=== PATIENT | male | born 2000 | race African-American/Black ===

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

== ENCOUNTER → 2021-07-27 | Outpatient (CLI) | payer MEDICAID ==
[~2021-07-27] MED LIST changes: -CLIN150C14 PO; +CLIN150C16 PO; +OSEL75CA PO
--- NOTE | 2021-07-27 15:59 | RAD ---
EXAM: Maxillofacial bone CT without contrast. HISTORY: Sinusitis. TECHNIQUE: Computed tomographic images of the maxillofacial bones were obtained without contrast. *One or more of the following individualized dose reduction techniques were utilized for this examina tion: 1. Automated exposure control. 2. Adjustment of the mA and/or kV according to patient size. 3. Use of iterative reconstruction technique. COMPARISON: None. FINDINGS: There is near complete opacification of the left maxillary sinus and there is moderate righ t maxillary sinus mucosal thickening with bilateral maxillary sinus air-fluid levels. There is severe bilateral ethmoid sinus mucosal thickening. The frontal sinus is not pneumatized. There is obstructi on of the ostiomeatal units. There is suspected erosion involving the medial maxillary sinus mclaughlin an d ethmoid septae. There is nasal septal deviation. The temporomandibular joints are intact. The orbits and mastoid air cells are unremarkable. The visua lized portions the brain and calvarium are unremarkable. There is lucency surrounding a portion of a residual right third mandibular molar root. There is dental amalgam. IMPRESSION: Severe ethmoid and maxillary sinus disease with obstruction of the ostiomeatal units and suspected erosive changes involving the medial maxillary mclaughlin and ethmoid septae. Electronically signed by: Karine Mcghee MD (07/27/2021 3:57 PM) [id number]
== END ==
LOC: CT 13:47
PROVIDERS: ATTEND Pediatrics
DX: J01.90 Acute sinusitis, unspecified (principal); J34.2 Deviated nasal septum; J34.89 Other specified disorders of nose and nasal sinuses
CPT/HCPCS: 70486; 86738